=== PATIENT | male | born 1980 | race Caucasian/White ===

== ENCOUNTER 2017-03-23 13:31 | Emergency (ER) | payer OTHER ==
[2017-03-23 14:31] VITALS: BP 127/79
--- NOTE | 2017-03-23 14:48 | UC ---
Respiratory Complaint HPI - HPI Summary HPI Summary: 36 y/o female presents to the urgent care c/o dry cough, chest congestion, sore throat, sinus pressure, nasal congestion with clear nasal discharge, body aches and headache for the past 3 days. Pain is 3/10 with swallowing and BOSTON. 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 Pt denies fever, SOB, chest pain, N/V/D, abdominal pain. Pt has not taken the flu vaccines this year. - History of Current Complaint Chief Complaint: UCRespiratory Stated Complaint: CHEST CONGESTION Time Seen by Provider: 03/23/17 14:46 Hx Obtained From: Patient Onset/Duration: Lasting Days - 3 days, Still Present, Worse Since - today Timing: Constant Severity Initially: Mild Severity Currently: Mild Pain Intensity: 3 Pain Scale Used: 0-10 Numeric Character: Cough: Nonproductive Aggravating Factors: Nothing Alleviating Factors: Nothing Associated Signs And Symptoms: Positive: URI, Nasal Congestion, Sinus Discomfort - Risk Factors Pulmonary Embolism Risk Factors: Negative Cardiac Risk Factors: Negative Pseudomonas Risk Factors: Negative Tuberculosis Risk Factors: Negative - Allergies/Home Medications Allergies/Adverse Reactions: Allergies Allergy/AdvReac Type Severity Reaction Status Date / Time No Known Allergies Allergy Verified 03/23/17 14:31 PMH/Surg Hx/FS Hx/Imm Hx Previously Healthy: Yes - Pt denies PMHX - Surgical History Surgical History: None - Family History Known Family History: Positive: Hypertension - Social History Occupation: Employed Full-time Lives: With Family Alcohol Use: Occasionally Substance Use Type: None Smoking Status (MU): Heavy Every Day Tobacco Smoker Type: Cigarettes Amount Used/How Often: 1 1/2 ppd Length of Time of Smoking/Using Tobacco: since age 15 Have You Smoked in the Last Year: Yes - Immunization History Most Recent Influenza Vaccination: no Review of Systems Constitutional: Negative, Chills, Other - body aches Skin: Negative ENT: Sore Throat, Nasal Discharge, Sinus Congestion, Sinus Pain/Tenderness Respiratory: Cough Cardiovascular: Negative Gastrointestinal: Negative Genitourinary: Negative Motor: Negative Neurovascular: Negative Musculoskeletal: Negative Neurological: Headache Psychological: Negative Is Patient Immunocompromised?: No All Other Systems Reviewed And Are Negative: Yes Physical Exam Triage Information Reviewed: Yes Vital Signs: Initial Vital Signs Temp 98.5 F 03/23/17 14:25 Pulse 69 03/23/17 14:25 Resp 16 03/23/17 14:25 BP 127/79 03/23/17 14:25 Pulse Ox 97 03/23/17 14:25 - Additional Comments VITAL SIGNS: Reviewed. GENERAL: Patient is a well developed and nourished male who is sitting comfortable in the examining table. Patient is not in any acute respiratory distress. HEAD AND FACE: No signs of trauma. No ecchymosis, hematomas or skull depressions. No sinus tenderness. EYES: PERRLA, EOMI x 2, No injected conjunctiva, no nystagmus. No photophobia. EARS: Hearing grossly intact. B/L Ear canals impacted with cerumen unable to visualize TM's. Nose: edematoud, eryhtematous nasl mucosa with clear nasal discharge MOUTH: Positive pharynx with erythema, no exudates, palatal petechiae. mild B/ L tonsillar enlargement with no exudate. Uvula in midline. NECK: Supple, trachea is midline, Positive anterior cervical lymphadenopathy, no JVD, no carotid bruit, no c-spine tenderness, neck with full ROM. No meningeal signs, no Kernig's or brudzinskis signs. CHEST: Symmetric, no tenderness at palpation LUNGS: Breath sound present. Mild wheezing on the left posterior upper lung.no rales or crackles. CVS: Regular rate and rhythm, S1 and S2 present, no murmurs or gallops appreciated. ABDOMEN: Soft, non-tender. No signs of distention. No rebound no guarding, and no masses palpated. Bowel sounds are normal. EXTREMITIES: FROM in all major joints, no edema, no cyanosis or clubbing. NEURO: Alert and oriented x 3. No acute neurological deficits. Speech is normal and follows commands. SKIN: Dry and warm UC Diagnostic Evaluation - Laboratory O2 Sat by Pulse Oximetry: 97 Respiratory Course/Dx - Course Course Of Treatment: 36 y/o female presents to the urgent care c/o dry cough, chest congestion, sore throat, sinus pressure, nasal congestion with clear nasal discharge, body aches and headache for the past 3 days. Pain is 3/10 with swallowing and [place]. 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 Pt denies fever, SOB, chest pain, N/V/D, abdominal pain. Pt has not taken the flu vaccines this year.Hx obtained. Pt with pharyngeal erythema, mild wheezing in left posterior upper lung and B/L ear impaction on examination . Pt given an albuterol Tx to alleviate cough and mild wheezing. Pt tolerated well treatment and lungs cleared. Rapid strep ordered, result: negative. Influenza A&B ordered: negative. Pt's O2sat :97%. Pt Rx Tessalon PO tabs and Albuterol inhaler and Debrox Otic drops to alleviates symptoms of pain and swelling. Advised on hand washing to avoid spreading. Pt advised to rest, eat well and avoid strenuous exercise. If symptoms do not improve or worsen advised to return to the urgent care or f/u with her PCP for further evaluation and treatment. Pt understood and agreed - Differential Dx/Diagnosis Differential Diagnosis/HQI/PQRI: Asthma, Bronchitis, Influenza, Laryngitis, Lower Resp Infection, Sinusitis, Other - upper respiratory infection Provider Diagnoses: 1- Upper respiratory infection. 2- Cough. 3-B/L ear cerumen impaction Discharge - Discharge Plan Condition: Stable Disposition: HOME Prescriptions: Albuterol HFA INHALER* [Ventolin HFA Inhaler*] 1 - 2 puff INH Q6H PRN #1 mdi PRN Reason: Cough Benzonatate CAP* [Tessalon 100 MG CAP*] 100 mg PO TID #21 cap Carbamide Peroxide 6.5% OTIC* [DEBROX 6.5% Otic*] 5 drop BOTH EARS BID #1 bottle Patient Education Materials: Cerumen Impaction (ED), Upper Respiratory Infection (ED) Referrals: Mikhial Ferrari MD [Primary Care Provider] - 3 Days Additional Instructions: 1-Take Tessalon PO tabs as directed and use the albuterol inhaler to alleviate sough. Increase fluid intake, rest and eat well. 2- If symptoms do not improve or worsen or your develop SOB with fever and severe wheezing please go immediately to the ER further evaluation and treatment. 3- F/u with your PCP in 3 days if not improving of symptoms. 4- Use the otic drops as directed to soften cerumen and alleviate symptoms.
[2017-03-23] MEDS ORDERED: Albuterol 2.5 MG/3 ML NEB.SOL* (0.083%) INH ONE (15:01)
== END 2017-03-23 15:45 | disposition home or self-care (01) ==
LOC: UCCORT 13:31
DX: J06.9 Acute upper respiratory infection, unspecified (principal); R05 Cough; H61.23 Impacted cerumen, bilateral; F17.210 Nicotine dependence, cigarettes, uncomplicated
CPT/HCPCS: 87502; 87651; 99212; G0463

== ENCOUNTER 2017-10-10 07:31 | Emergency (ER) | payer OTHER ==
[2017-10-10 07:46] VITALS: BP 114/69
--- NOTE | 2017-10-10 08:16 | UC ---
Skin Complaint HPI - HPI Summary HPI Summary: Pt presents with 6 months of dry, peeling rash to right foot. Pt denies pain. Pt states occsionally with vesicles with clear drainage. no reddness,no warmth. Pt has not treated with anything. 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 Pt has not seen anyone for this before , but had time today so elected to get it checked. Pt's medications reviewed this visit - History of Current Complaint Chief Complaint: UCSkin Time Seen by Provider: 10/10/17 08:04 Stated Complaint: RASH ON RT FOOT Hx Obtained From: Patient Pain Intensity: 0 - Allergy/Home Medications Allergies/Adverse Reactions: Allergies Allergy/AdvReac Type Severity Reaction Status Date / Time No Known Allergies Allergy Verified 03/23/17 14:31 Home Medications: Home Medications buPROPion TAB* [Wellbutrin TAB*] 1 tab DAILY 10/10/17 [History Confirmed ] Review of Systems Constitutional: Negative Skin: Rash All Other Systems Reviewed And Are Negative: Yes PMH/Surg Hx/FS Hx/Imm Hx Previously Healthy: Yes - Surgical History Surgical History: None - Family History Known Family History: Positive: Hypertension - Social History Occupation: Employed Full-time Lives: With Family Alcohol Use: Weekly Substance Use Type: None Smoking Status (MU): Heavy Every Day Tobacco Smoker Type: Cigarettes Amount Used/How Often: 1 1/2 ppd Length of Time of Smoking/Using Tobacco: since age 15 Have You Smoked in the Last Year: Yes - Immunization History Most Recent Influenza Vaccination: no Physical Exam - Summary Physical Exam Summary: Vital Signs Reviewed: Yes A+Ox3, no distress Eyes: Conjunctiva Clear, JOSE L. EOM intact and full ENT: Hearing grossly normal TM x 2 clear, mmoist, uvula midline, no exudate, no erythema Neck: Positive: Supple Respiratory: Positive: No respiratory distress, No accessory muscle use + CTA throughout no w/r Cardiovascular: RRR nl s1, s2 no m/r CBT <2 sec abd soft + BS nt/nd no guarding, no distension Musculoskeletal Exam: VERNON x 4 without difficulty Strength Intact, ROM Intact Neurological: Positive: Alert, + sensation throughout Psychological: Positive: Normal Response To Family Skin: Positive: no ecchymosis, right foot: pt with 3x4 cm patch of dry, peeling areas of skin, slighlty raised. also with several (<10 small vesicle lesions - nontender, no warmth,no erythema clear drainage - culture taken Triage Information Reviewed: Yes Vital Signs: Initial Vital Signs Temp 97.5 F 10/10/17 07:40 Pulse 66 10/10/17 07:40 Resp 16 10/10/17 07:40 BP 114/69 10/10/17 07:40 Pulse Ox 98 10/10/17 07:40 Course/Dx - Course Course Of Treatment: Pt presents with 6 months of rash to sole of right foot. Patch like amrita of dryness, peeling appears like tinea. Pt also with small vesicle lesions with clear serous discharge when expressed - unclear dx. d/w pt at length. will rX antifungal, culture taken. pt given contact referral info for dermatology. Recommend pt call for appt. suggested pt hold on fillingRx until seen by derm if able to get timely appt (<5 days) pt comfortable and in agreement with plan - Diagnoses Provider Diagnoses: acute rash right foot Discharge - Sign-Out/Discharge Documenting (check all that apply): Patient Departure - Discharge Plan Condition: Stable Disposition: HOME Prescriptions: Cephalexin CAP* [Keflex 500 CAP*] 500 mg PO QID #28 cap Miconazole TOPICAL CREAM 2%* [Monistat 2%*] 1 applic TOPICAL BID #1 tube Patient Education Materials: Miconazole (On the skin), Athlete's Foot (ED) Referrals: Mikhail Ferrari MD [Primary Care Provider] - Additional Instructions: -gentle wash your foot with warm water and mild soap. Pat dry. Once your foot is dry, apply foot cream to your right foot 2 times a day - you have been given an bobbi wrap - okay to put on your foot after applying cream to prevent your sock from getting wet - a culture was taken from your foot wound today. If you need a different treatment, you will receive a call from a care steam engineer. This may take 3-4 days - Contact the power tool repairer today to schedule a follow-up appointment. The power tool repairer has hours in both [place] and [place] - call for first available appointment - Billing Disposition and Condition Condition: STABLE Disposition: Home
--- NOTE | 2017-10-12 15:32 | UC ---
- Progress Note Progress Note: Foot culture with Staph, no MRSA. Cephalexin sent in. Discharge - Sign-Out/Discharge Documenting (check all that apply): Patient Departure - Discharge Plan Condition: Stable Disposition: HOME Prescriptions: Cephalexin CAP* [Keflex 500 CAP*] 500 mg PO QID #28 cap Miconazole TOPICAL CREAM 2%* [Monistat 2%*] 1 applic TOPICAL BID #1 tube Patient Education Materials: Miconazole (On the skin), Athlete's Foot (ED) Referrals: Mikhail Ferrari MD [Primary Care Provider] - Additional Instructions: -gentle wash your foot with warm water and mild soap. Pat dry. Once your foot is dry, apply foot cream to your right foot 2 times a day - you have been given an bobbi wrap - okay to put on your foot after applying cream to prevent your sock from getting wet - a culture was taken from your foot wound today. If you need a different treatment, you will receive a call from a care collection team lead. This may take 3-4 days - Contact the belt weaver today to schedule a follow-up appointment. The belt weaver has hours in both [place] and [place] - call for first available appointment - Billing Disposition and Condition Condition: STABLE Disposition: Home
== END 2017-10-10 08:33 | disposition home or self-care (01) ==
LOC: UCCORT 07:31
DX: R21 Rash and other nonspecific skin eruption (principal); F17.210 Nicotine dependence, cigarettes, uncomplicated
CPT/HCPCS: 87070; 87077; 87186; 87205; 87640; 87641; 99212; G0463